=== PATIENT | male | born 1940 | race Caucasian/White ===

== ENCOUNTER → 2016-07-09 | Outpatient (CLI) | payer MEDICARE, BC ==
--- NOTE | ~2016-07-09 | MR134 ---
[facility] A Service of [facility] & [facility] RADIOLOGY TEXT RESULTS PATIENT: BLAYNE JOSE LOCATION: CMRI : 38 UNIT #: [id number] AGE: [address]: Destin Dave II, MD SEX: M ORDER DR: [id number] [facility]. [place], [place] [address] [id number] O MR#: [id number] Acc #: [id number] NAME: BLAYNE JOSE : 1940 SEX: M STUDY DATE/TIME: 07/09/2016 17:35 UNIT: [facility] ROOM: STUDY DESCRIPTION: MR MRA Neck Wo Contrast Attending Physician: Destin Dave II., M.D. Referring Physician: Destin Dave II., M.D. Ordering Physician: Destin Dave II., M.D. Primary Care Physician: Jacky Costa M.D. MRI CENTER REPORT This report is preliminary unless electronic signature is present. EXAM Neck MRA no contrast, 07/09/2016 PROCEDURE Axial uryh-uy-tesppd neck MRA with three-dimensional reformats. CLINICAL HISTORY Unsteady gait, dizziness and headache since June 28. FINDINGS Both common and internal and external carotids appear patent. There is mild plaque at the base of the left carotid bulb but 0% stenosis by NASCET criteria. The right carotid bifurcation appears normal without evidence of plaque or stenosis by NASCET criteria. Vertebral arteries are normally patent bilaterally with mild left vertebral dominance. IMPRESSION 1. Mild plaque at the left carotid bulb and none on the right, 0% stenosis by NASCET criteria in both internal carotids. 2. Both vertebral arteries are normally patent, and there is mild left vertebral dominance. Dictated by... Franklin Arzola M.D. THIS IS AN ELECTRONICALLY VERIFIED REPORT Franklin Arzola M.D. at 07/10/2016 4:12 PM Gill TD: 07/10/2016 11:42 JOB #: [id number] MRI CENTER REPORT [facility] A Service of [facility] & [facility] RADIOLOGY TEXT RESULTS PATIENT: BLAYNE JOSE LOCATION: CMRI : 38 UNIT #: [id number] AGE: [address]: Destin Dave II, MD SEX: M ORDER DR: COPY
--- NOTE | ~2016-07-09 | MR122 ---
[facility] A Service of [facility] RADIOLOGY TEXT RESULTS PATIENT: BLAYNE JOSE LOCATION: CMRI : 38 UNIT #: [id number] AGE: [address]: Destin Dave II, MD SEX: M ORDER DR: [id number] [facility]. [place], [place] [address] [id number] O MR#: [id number] Acc #: [id number] NAME: BLAYNE JOSE : 1940 SEX: M STUDY DATE/TIME: 07/09/2016 17:35 UNIT: [facility] ROOM: STUDY DESCRIPTION: MR MRA Head Wo Contrast Attending Physician: Destin Dave II., M.D. Referring Physician: Destin Dave II., M.D. Ordering Physician: Destin Dave II., M.D. Primary Care Physician: Jacky Costa M.D. MRI CENTER REPORT This report is preliminary unless electronic signature is present. EXAM Head MRA, no contrast, 07/09/2016. PROCEDURE Axial uvbw-lz-jkhyza head MRA with three-dimensional reformats. This CT exam was performed with one or more of the following radiation dose reduction techniques: automatic exposure control, adjustment of mA and/or kV according to patient size, and iterative reconstruction. COMPARISON STUDIES None CLINICAL HISTORY Unsteady gait and dizziness and headache. FINDINGS Both internal carotids and both vertebral arteries and the basilar artery are normally patent. There is symmetric vascularity overall in the anterior, middle, and posterior cerebral distributions. There is a type right posterior cerebral origin but the right P1 is patent. The left posterior communicator appears patent as well, as does the anterior communicator. IMPRESSION Normal head MRA. Complete telida of [place]. No aneurysm or flow-limiting stenosis. No acute abnormality. Dictated by... Franklin Arzola M.D. [facility] A Service of [facility] & [facility] RADIOLOGY TEXT RESULTS PATIENT: BLAYNE JOSE [facility] UNIT #: [id number] AGE: [address]: Destin Dave II, MD SEX: M ORDER DR: THIS IS AN ELECTRONICALLY VERIFIED REPORT Franklin Arzola M.D. at 07/10/2016 4:12 PM TEV/josew TD: 07/10/2016 11:43 JOB #: [id number] MRI CENTER REPORT COPY
--- NOTE | ~2016-07-09 | MR17 ---
[facility] A Service of [facility] RADIOLOGY TEXT RESULTS PATIENT: BLAYNE JOSE LOCATION: CM[facility] : 38 UNIT #: [id number] AGE: [address]: Destin Dave II, MD SEX: M ORDER DR: [id number] [facility]. [place], [place] [address] [id number] O MR#: [id number] Acc #: [id number] NAME: BLAYNE JOSE : 1940 SEX: M STUDY DATE/TIME: 07/09/2016 17:35 UNIT: [facility] ROOM: STUDY DESCRIPTION: MR Brain WWo Contrast Attending Physician: Destin Dave II., M.D. Referring Physician: Destin Dave II., M.D. Ordering Physician: Destin Dave II., M.D. Primary Care Physician: Jacky Costa M.D. MRI CENTER REPORT This report is preliminary unless electronic signature is present. EXAM Brain MR with and without contrast DATE OF STUDY 07/09/[address] dated 06/20/2016. PROCEDURE Routine brain MR with and without contrast. CLINICAL HISTORY Unsteady gait since 06/28/2016. Dizziness and headache for the same time. FINDINGS There is no MR evidence of acute ischemia or other restricted diffusion. There is no hydrocephalus or extraaxial fluid collection and the brain is structurally normal. Bone marrow signal is normal. There is no evidence of acute intracranial hemorrhage. There is a tiny punctate focus of gradient hypointensity in the left periatrial white matter possibly a tiny focus of old blood product, and there is a second similar punctate lesion in the left posterior frontal cortex and probably in the precentral gyrus. While there is mild volume loss, brain parenchymal signal is, otherwise, normal except for very slight periventricular T2 signal change and faint minimal subcortical white matter. Normal flow voids are seen in the cerebral vessels. There is some left maxillary sinus mucosal thickening and some slight ethmoid mucosal thickening. Postcontrast images show no mass or abnormal enhancement. IMPRESSION [facility] A Service of [facility] RADIOLOGY TEXT RESULTS PATIENT: BLAYNE JOSE LOCATION: CM[facility] : 38 UNIT #: [id number] AGE: [address]: Destin Dave II, MD SEX: M ORDER DR: Essentially negative brain MRI with and without contrast, normal for age. There is some mild volume loss and very minimal nonspecific white matter change. There are 2 punctate foci of gradient hypointensity which may be some old blood product, or even old tiny calcifications but very doubtful clinical significance. There is no evidence of acute ischemia or other restricted diffusion. There is no hemorrhage, hydrocephalus, or mass or extraaxial fluid collection or other acute abnormality. Dictated by... Franklin Arzola M.D. THIS IS AN ELECTRONICALLY VERIFIED REPORT Franklin Arzola M.D. at 07/10/2016 4:12 PM TEV/aa TD: 07/10/2016 11:50 JOB #: [id number] MRI CENTER REPORT COPY
[2016-07-09 18:46] LABS: POC - CREATININE 1.04 mg/dL (0.64-1.27); POC - GFR >60.0 mL/min (>60)
== END | disposition home or self-care (01) ==
LOC: CMRI 16:56
PROVIDERS: Psychiatry & Neurology Neurology
DX: R51 Headache (principal); I65.22 Occlusion and stenosis of left carotid artery
CPT/HCPCS: 70544; 70547; 70553; 82565; A9577